=== PATIENT | female | born 1955 | race African-American/Black ===

== ENCOUNTER 2016-12-18 08:55 | Day surgery (SDC) | payer OTHER ==
[2016-12-16 11:42] VITALS: BMI 27.1
[2016-12-18] MEDS ORDERED: DEXAMETHASONE SOD PHOSPHATE/PF 10 MG/ML SDV ONE (10:35)
[2016-12-18] MEDS ORDERED: ROPIVACAINE HCL 0.5% 30ML VIAL ONE (10:35)
[2016-12-18] MEDS ORDERED: MIDAZOLAM HCL 2 MG/2 ML SINGLE DOSE VIAL ONE ×2 (11:04)
[2016-12-18] MEDS ORDERED: ceFAZolin SODIUM 1 GM VIAL ONE (11:49)
[2016-12-18] MEDS ORDERED: DEXAMETHASONE SOD PHOSPHATE 4 MG/1 ML VIAL ONE (11:49)
--- NOTE | 2016-12-18 11:56 | HP ---
Satellite [facility] - Chief Complaint Chief Complaint: right shoulder pain - Past Medical History Allergies/Adverse Reactions: Allergies Allergy/AdvReac Type Severity Reaction Status Date / Time No Known Drug Allergies Allergy Verified 12/18/16 09:42 - Current Medications Current Medications: Home Medications Medication Instructions Recorded Amlodipine Besylate 10 mg PO DAILY 12/16/16 Benazepril HCl 20 mg PO DAILY 12/16/16 Flexeril 10 mg 10 mg PO PRN PRN 12/16/16 Gabapentin [Neurontin -] 300 mg PO PRN PRN 12/16/16 Latanoprost 0.005% Eye Drops 1 drop OU HS 12/16/16 [Xalatan 0.005% Eye Drops -] Metformin HCl [Metformin HCl ER] 500 mg PO DAILY 12/16/16 Satellite Physical Exam - Physical Examination Vital Signs: Vital Signs Period Temp Pulse Resp BP Sys/Billings Pulse Ox Last 24 Hr 97.8 F 100 18 134/80 99 General Appearance: Well Nourished, Well Developed, Alert & Oriented x3 ENT: Clear Lung: Normal air movement Heart: Regular rate & rhythm Extremities: Other (right shoulder- + ttp ,decr rom, + neer, + muhammad, nvi MRI + impingement) Neurological: Intact, Alert, Oriented Satellite Impression/Plan - Impression/Plan Impression: right shoulder impingement Operative Procedure: right shoulder arthroscopy with SAD Date to be Performed: 12/18/16
[2016-12-18] MEDS ORDERED: ceFAZolin SODIUM 1 GM VIAL IVPB ONE (12:05)
[2016-12-18] MEDS ORDERED: oxyCODONE HCL 5 MG TABLET PO PRN (12:05)
[2016-12-18] MEDS ORDERED: ONDANSETRON 4 MG/2 ML VIAL IVPUSH PRN (12:05)
[2016-12-18] MEDS ORDERED: LACTATED RINGERS SOLUTION 1,000 ML IV SCH (12:15)
--- NOTE | 2016-12-18 12:40 | OP ---
Operative Note - Note: Operative Date: 12/18/16 ([facility]) Pre-Operative Diagnosis: right shoulder impingement Operation: right shoulder arthroscopy with SAD Post-Operative Diagnosis: Same as Pre-op Surgeon: iPero Mohan Gas Generator Operator: Gordon Cristobal Anesthesiologist/GI ASST: Ravin Proctor Anesthesia: General, Local Specimens Removed: shavings Estimated Blood Loss (mls): 5 Operative Report Dictated: Yes
[2016-12-18 13:53] VITALS: TEMP 97.9
[2016-12-18 17:16] VITALS: BP 141/83; PULSE 98
--- NOTE | 2016-12-18 21:30 | OP ---
DATE OF OPERATION: 12/18/2016 PREOPERATIVE DIAGNOSIS: Right shoulder subacromial impingement. POSTOPERATIVE DIAGNOSIS: Right shoulder subacromial impingement. PROCEDURE: Right shoulder arthroscopy and subacromial decompression. SURGEON: Silvino Rothman MD FRUIT PEELER: BRENDA Muniz ANESTHESIA: Ravin , ROAD MACHINE RUNNER. Right interscalene block and LM anesthesia. DRAINS: None. COMPLICATIONS: None. BLOOD LOSS: Minimal. BLOOD GIVEN: None. FLUID REPLACEMENT: 500 mL. INDICATIONS: This patient is a 61-year-old female with a preoperative diagnosis of a right shoulder impingement syndrome. After understanding the potential risks, complications, alternatives, and benefits to surgical versus nonsurgical treatment, the patient elected to undergo this procedure. The patient was brought to the operating room, peripheral IV placed, IV sedation given. Then 1 g of IV Ancef was given. A right interscalene block was performed. LM anesthesia was induced. She was placed into beach chair position with ample padding throughout. The right upper extremity was prepped and draped in sterile fashion. The bony landmarks marked out with a marking pen. A posterior portal was established and a diagnostic glenohumeral arthroscopy was performed. In the glenohumeral joint, the patient had a little fraying of the anterior labrum between the 12 and 3 o'clock position but it did not look unstable, did not look like a big tear, it was just a little bit of physiologic fraying. The patient had no glenohumeral osteoarthritis. The biceps tendon looked good and the undersurface of the rotator cuff looked good. I put the arm through a full range of motion. There was no pathology in the glenohumeral joint. Next, our attention was turned to the subacromial space. A lateral portal was established under direct visualization using a spinal needle and number 11 scalpel blade and then the Green cannula was introduced into the subacromial space. The patient had a lot of inflammatory bursitis. A soft tissue bursectomy was performed with the ArthroCare wand. After the extensive debridement, this revealed a large subacromial spur. Photographs were taken. A 5.5 mm oval avni was introduced into the subacromial space, where a bony subacromial decompression was performed. I then cleared off the distal aspect of clavicle. There was a small bone spur, which was removed here as well. The area was copiously irrigated and washed out. Shaver introduced to remove all of the debris. The top of the rotator cuff observed through a full range of motion. There was no other pathology. Everything else looked good. The area was washed out, the excess saline removed. The arthroscopy portals were closed with 3-0 nylon suture. The area was then washed and dried and covered with Aquacel and put into a sling. Total operative time was 30 minutes. There were no complications during the case. The patient tolerated the procedure well, was brought to the ambulatory recovery room in stable condition. SILVINO ROTHMAN M.D. [id number]
--- NOTE | 2016-12-19 15:19 | PATH ---
Surgical Pathology Report Patient Name: CYNTHIA GATICA [facility]. Rec. #: [id number] /Age/Gender: 1955 (Age: 61) / F Account: [id number] Location: [facility] SURGICAL Taken: 12/18/2016 Received: 12/18/2016 Reported: 12/19/2016 Physicians: Piero Mohan M.D. Specimen(s) Received RIGHT SHOULDER SHAVINGS Clinical History Impingement right shoulder Final Diagnosis RIGHT SHOULDER, ARTHROSCOPIC SHAVING: PORTIONS OF SYNOVIUM, CARTILAGE, SKELETAL MUSCLE AND BONE CONSISTENT WITH ARTHROSCOPIC SHAVINGS. Electronically Signed Chapo Caballero M.D. Gross Description Received in formalin, labeled "right shoulder shavings," is a 4.3 x 3.3 x 0.3 cm. aggregate of toure-yellow soft tissue fragments. A product support representative portion is submitted in one cassette. DL/12/18/2016 saudi12/18/2016
== END 2016-12-18 14:45 | disposition home or self-care (01) ==
LOC: JASU-SURG 08:55
PROVIDERS: ATTEND Orthopaedic Surgery
PROC: 0RBJ4ZZ Excision of Right Shoulder Joint, Percutaneous Endoscopic Approach (ICD-10-PCS; principal; 2016-12-18 11:00)
DX: M75.41 Impingement syndrome of right shoulder (principal)
CPT/HCPCS: 88304-TC; 94760

== ENCOUNTER 2019-01-13 07:43 | Day surgery (SDC) | payer OTHER ==
[2019-01-12 12:39] VITALS: BMI 27.8
--- NOTE | 2019-01-13 08:03 | HP ---
Satellite H - Chief Complaint Chief Complaint: left shoulder pain - Past Medical History Allergies/Adverse Reactions: Allergies Allergy/AdvReac Type Severity Reaction Status Date / Time No Known Drug Allergies Allergy Verified 01/12/19 12:58 - Current Medications Current Medications: Home Medications Medication Instructions Recorded Latanoprost 0.005% Eye Drops 1 drop OS HS 12/16/16 [Xalatan 0.005% Eye Drops -] metFORMIN HCL [Metformin ER 500 mg PO BID 12/16/16 Osmotic] Amlodipine Besylate 10 mg PO DAILY 01/12/19 Aspirin Coated [Ecotrin -] 81 mg PO DAILY 01/12/19 Benazepril HCl 20 mg PO DAILY 01/12/19 Buspirone HCl 15 mg PO DAILY 01/12/19 Desvenlafaxine [Desvenlafaxine ER] 50 mg PO DAILY 01/12/19 Metoprolol Tartrate 50 mg PO DAILY 01/12/19 Pravastatin Sodium [Pravachol -] 40 mg PO HS 01/12/19 Zaleplon [Sonata (Nf)] 10 mg PO DAILY 01/12/19 Hydrocodone/Acetaminophen 1 each PO Q6H #30 tablet MDD 4 01/13/19 [Hydrocodone-Acetamin 5-325 mg] Satellite Physical Exam - Physical Examination General Appearance: Well Nourished, Well Developed, Alert & Oriented x3 ENT: Clear Lung: Normal air movement Heart: Regular rate & rhythm Extremities: Other (left shoulder- + ttp, decr rom ,+ neer, +_ muhammad, + apprehension, + cross arm add, nvi, MRI + labral tear, AC jt OA) Neurological: Intact, Alert, Oriented Satellite Impression/Plan - Impression/Plan Impression: left shoulder internal derangement Operative Procedure: left shoulder arthroscopy with SAD, DCE, and possible labral repair Date to be Performed: 01/13/19
[2019-01-13] MEDS ORDERED: PROPOFOL 20 ML ONE ×2 (09:53→10:46)
[2019-01-13] MEDS ORDERED: LIDOCAINE HCL/PF 2% SDV 5ML VIAL ONE (09:54)
[2019-01-13] MEDS ORDERED: KETOROLAC TROMETHAMINE 30 MG/1 ML VIAL ONE (09:55)
[2019-01-13] MEDS ORDERED: DEXAMETHASONE SOD PHOSPHATE/PF 10 MG/ML SDV ONE (10:00)
[2019-01-13] MEDS ORDERED: ROPIVACAINE HCL 0.5% 30ML VIAL ONE (10:00)
[2019-01-13] MEDS ORDERED: MIDAZOLAM HCL 2 MG/2 ML SINGLE DOSE VIAL ONE ×3 (10:01→10:45)
[2019-01-13] MEDS ORDERED: DEXAMETHASONE SOD PHOSPHATE 4 MG/1 ML VIAL ONE (10:45)
[2019-01-13] MEDS ORDERED: ONDANSETRON 4 MG/2 ML VIAL IVPUSH PRN (12:10)
[2019-01-13] MEDS ORDERED: LACTATED RINGERS SOLUTION 1,000 ML IV SCH (12:15)
[2019-01-13] MEDS ORDERED: ceFAZolin SODIUM 1 GM VIAL IVPB ONE (12:32)
[2019-01-13] MEDS ORDERED: ceFAZolin SODIUM 1 GM VIAL ONE (12:39)
--- NOTE | 2019-01-13 13:49 | OP ---
Operative Note - Note: Operative Date: 01/13/19 Pre-Operative Diagnosis: left shoulder impingement syndrome, labral tear Operation: left shoulder arthroscopy, decompression, labral repair Post-Operative Diagnosis: Same as Pre-op Surgeon: Piero Mohan Rac Specialist: Gordon Cristobal Anesthesiologist/RESEARCH GREENHOUSE SUPERVISOR: Raiza Alarcon Anesthesia: General, Local Specimens Removed: shavings Estimated Blood Loss (mls): 30 Drains, Volume Out (mls): 0 Blood Volume Replaced (mls): 0 Fluid Volume Replaced (mls): 1,000 Operative Report Dictated: Yes
[2019-01-13] MEDS ORDERED: ACETAMINOPHEN INJECTION 100 ML IVPB ONE (15:13)
[2019-01-13] MEDS ORDERED: ACETAMINOPHEN 1000 MG/100 ML VIAL (NON FORMULARY) IVPB ONE ×2 (15:15→15:45)
[2019-01-13] MEDS ORDERED: oxyCODONE HCL 5 MG TABLET PO PRN (15:44)
[2019-01-13] MEDS ORDERED: oxyCODONE HCL 5 MG TABLET ONE (16:00)
[2019-01-13] MEDS ORDERED: oxyCODONE HCL 5 MG TABLET PO ONE (16:03)
[2019-01-13 17:34] VITALS: BP 120/65; PULSE 82; TEMP 97.7
--- NOTE | 2019-01-14 09:00 | OP ---
DATE OF OPERATION: 01/13/2019 PREOPERATIVE DIAGNOSIS: Left shoulder impingement syndrome and labral tear. POSTOPERATIVE DIAGNOSIS: Left shoulder impingement syndrome and labral tear. PROCEDURE: Left shoulder arthroscopy, subacromial decompression, and arthroscopic labral repair. SURGEON: Piero Mohan MD JOB LITHOGRAPHER: BRENDA Muniz ANESTHESIOLOGIST: PROSPER Vasquez ANESTHESIA: Left interscalene block with LMA anesthesia. DRAINS: None. COMPLICATIONS: None. SPECIMEN: Arthroscopic shavings. BLOOD LOSS: 30 mL. BLOOD GIVEN: None. FLUID REPLACEMENT: Plasma-Lyte 1000 mL. This patient is a 63-year-old female with a preoperative diagnosis of left shoulder impingement syndrome and a labral tear. After understanding the potential risks, complications, alternatives, and benefits of surgery versus nonsurgical treatment, the patient elected to undergo this procedure. Patient was brought to the operating room. Peripheral IV placed. IV sedation given. Two grams of IV Ancef were given, and a left interscalene block was performed. LMA anesthesia was induced. She was placed into the beach chair position with ample padding throughout. The left upper extremity was prepped and draped in sterile fashion. The bony landmarks were marked out around the shoulder with a marking pen. Posterior portal was established. A diagnostic arthroscopy was performed. In the glenohumeral joint, she seemed to have some glenohumeral osteoarthritis. On the humerus, there was a lesion about the size of a nickel that had grade 4 chondromalacia. This might just be the humeral head bald spot. On the glenoid, there was corresponding, widespread grade 2/grade 3 changes with a small area in the central portion of exposed bone. I would not say that she needs a total shoulder replacement at this point, but she definitely is developing glenohumeral osteoarthritis. The biceps tendon looked good. The undersurface of the rotator cuff had a very small, partial, undersurface tear. This was debrided with a shaver and further probed. It did not go any deeper. The patient had an obviously torn labrum. An anterior portal was established with a spinal needle. A green cannula was introduced into the joint. The probe was introduced, and the labral tear explored. From the 12 o'clock to the 7 o'clock position, it was completely torn. There was some more debridement done with the ArthroCare wand. The rasp was used to prepare the bony surface underneath the labrum, and we established 2 portals. Using the 90-degree corkscrew, we introduced 2 FiberWires in a lasso fashion around the labrum and tacked them down in place in the standard fashion using the standard technique using the Arthrex PushLock anchors. This brought the entire anterior torn labrum down quite nicely. It was probed again, and there were no other abnormalities seen. The labrum came down quite nicely. There was a good anterior bumper. Next, our attention turned to the subacromial space. The patient had a lot of inflammatory bursitis. A lateral portal was established under direct visualization, and an ArthroCare wand used to do an extensive debridement/soft tissue bursectomy. Once this was done, a moderate-sized subacromial spur was identified and debrided with the 5.5-mm oval avni. I then put it on to reverse, to fine tune it, and used the shaver. There was no distal clavicle undersurface osteophyte. The area was copiously irrigated and washed out. Again, the shaver introduced to fine tune the decompression, finish the bursectomy, and the top surface of the rotator cuff was directly visualized to all planes. There was no tear. All instrumentation, excess saline, and debris were removed. The arthroscopy portals closed with 3-0 nylon sutures. The area was then washed and dried, covered with Aquacel dressing. Patient was extubated and placed into a left shoulder immobilizer. Total operative time was about 50 minutes. There were no complications during the case. The patient tolerated the procedure well and was brought to the ambulatory recovery room in stable condition. Pierce [id number]
--- NOTE | 2019-01-15 18:22 | PATH ---
Surgical Pathology Report Patient Name: CYNTHIA GATICA [facility]. Rec. #: [id number] /Age/Gender: 1955 (Age: 63) / F Account: [id number] Location: [facility] Taken: 01/13/2019 Received: 01/14/2019 Reported: 01/15/2019 Physicians: Piero Mohan M.D. Specimen(s) Received LEFT SHOULDER SHAVINGS Clinical History Left shoulder tear Final Diagnosis SHOULDER SHAVINGS, LEFT, ARTHROSCOPY WITH SUBACROMIAL DECOMPRESSION: FRAGMENTS OF BENIGN CARTILAGE, BONE, DENSE FIBROCONNECTIVE TISSUE, ADIPOSE TISSUE, SYNOVIUM, AND SKELETAL MUSCLE. Electronically Signed Leonie Gallo M.D. Gross Description Received in formalin, labeled "left shoulder shavings," is a 4.5 x 3.2 x 0.3 cm. aggregate of toure-yellow soft tissue fragments. A cash applications representative portion is submitted in one cassette. /01/14/2019 saudi01/14/2019
== END 2019-01-13 17:30 | disposition home or self-care (01) ==
LOC: JASU-SURG 07:43
PROVIDERS: ATTEND Orthopaedic Surgery
PROC: 0RBK4ZZ Excision of Left Shoulder Joint, Percutaneous Endoscopic Approach (ICD-10-PCS; 2019-01-13)
PROC: 0RQK4ZZ Repair Left Shoulder Joint, Percutaneous Endoscopic Approach (ICD-10-PCS; 2019-01-13)
PROC: 0MM24ZZ Reattachment of Left Shoulder Bursa and Ligament, Percutaneous Endoscopic Approach (ICD-10-PCS; principal; 2019-01-13 12:47)
DX: M75.42 Impingement syndrome of left shoulder (principal); M24.112 Other articular cartilage disorders, left shoulder
CPT/HCPCS: 82962; 88304-TC; 94760; J0131